=== PATIENT | female | born 1970 | race Caucasian/White ===

== ENCOUNTER 2021-01-06 13:21 | Emergency (ER) | payer MEDICAID ==
[~2021-01-06] VITALS: Ht 167.6 cm; Wt 92.6 kg
[2021-01-06 14:58] VITALS: BP 189/97
[2021-01-06] MEDS ORDERED: traMADol 50 MG TABLET PO ONE (15:30)
--- NOTE | 2021-01-06 15:35 | PHYS DOC ---
Past Medical History Additional Past Medical Histor: dental caries/infections Past Surgical History: Hysterectomy General Adult EDM: Chief Complaint: DENTAL PROBLEM HPI: HPI: Patient is a 50 year old female who presents with 1 week history of right-sided dental pain. Patient rates her pain 8/10 and throbbing in nature, with radiation to her right ear right lower jaw and right periorbital area. Patient states that she lost a filling last year and has had pain with infection 2 or 3 times since then. She has taken Tylenol and ibuprofen at home, but the pain is becoming intolerable. She reports her last dose was 2 tablets of Tylenol just prior to arrival. She reports associated chills, insomnia and subjective fever. She has had nausea and vomiting for the past 2 days, however she is able to keep fluids down. Patient denies chest pain, palpitations, new onset cough, shortness of breath. She has an additional complaint of a mole that is peeling and itchy. She denies any bleeding, discharge or surrounding warmth and erythema. Patient has no other complaints at this time. Review of Systems: Review of Systems: ROS negative except as mentioned in HPI. Heart Score: C/O Chest Pain: No Current Medications: Current Medications Medications (Trade) Dose Ordered Sig/Barb Start Time Stop Time Status Last Admin Dose Admin Tramadol HCl (Ultram) 50 mg 1X ONCE 01/06/21 15:30 01/06/21 15:31 UNV Allergies: Allergies: Allergies Coded Allergies Type Severity Reaction Last Updated Verified No Known Drug Allergies 01/06/21 No Physical Exam: PE: Constitutional: Well developed, well nourished, appears to be in pain however non-toxic appearance. HENT: Normocephalic, atraumatic, bilateral external ears normal, oropharynx moist, right upper molars with cavities and infection without obvious abscess, right mandibular and maxillary areas without external fluctuance, no periorbital abscess, nose normal. Eyes: PERRLA, EOMI, conjunctiva normal, no discharge. Neck: Normal range of motion, no tenderness, supple, no stridor. Cardiovascular: Heart rate regular rhythm, no murmur. Lungs & Thorax: Bilateral breath sounds clear to auscultation. Abdomen: Bowel sounds normal, soft, no tenderness, no masses, no pulsatile masses. Skin: Warm, dry, no erythema, no rash. 5 mm raised mole noted to left lateral thoracic back, dark brown without variation in color, symmetrical, well- circumscribed without erythema or any discharge. Back: No step-offs, no tenderness. Current Patient Data: Labs: Laboratory Tests Test 01/06/21 16:21 White Blood Count 10.5 x10^3/uL (4.0-11.0) Red Blood Count 5.55 x10^6/uL (3.50-5.40) Hemoglobin 16.5 g/dL (12.0-15.5) Hematocrit 48.1 % (36.0-47.0) Mean Corpuscular Volume 87 fL (79-100) Mean Corpuscular Hemoglobin 30 pg (25-35) Mean Corpuscular Hemoglobin Concent 34 g/dL (31-37) Red Cell Distribution Width 13.4 % (11.5-14.5) Platelet Count 413 x10^3/uL (140-400) Neutrophils (%) (Auto) 78 % (31-73) Lymphocytes (%) (Auto) 16 % (24-48) Monocytes (%) (Auto) 5 % (0-9) Eosinophils (%) (Auto) 0 % (0-3) Basophils (%) (Auto) 1 % (0-3) Neutrophils # (Auto) 8.2 x10^3/uL (1.8-7.7) Lymphocytes # (Auto) 1.7 x10^3/uL (1.0-4.8) Monocytes # (Auto) 0.5 x10^3/uL (0.0-1.1) Eosinophils # (Auto) 0.0 x10^3/uL (0.0-0.7) Basophils # (Auto) 0.1 x10^3/uL (0.0-0.2) Sodium Level 137 mmol/L (136-145) Potassium Level 4.3 mmol/L (3.5-5.1) Chloride Level 100 mmol/L (98-107) Carbon Dioxide Level 30 mmol/L (21-32) Anion Gap 7 (6-14) Blood Urea Nitrogen 14 mg/dL (7-20) Creatinine 0.8 mg/dL (0.6-1.0) Estimated GFR (Cockcroft-Gault) 75.6 BUN/Creatinine Ratio 18 (6-20) Glucose Level 109 mg/dL (70-99) Calcium Level 9.1 mg/dL (8.5-10.1) Total Bilirubin 0.4 mg/dL (0.2-1.0) Aspartate Amino Transf (AST/SGOT) 12 U/L (15-37) Alanine Aminotransferase (ALT/SGPT) 36 U/L (14-59) Alkaline Phosphatase 132 U/L (46-116) Total Protein 8.4 g/dL (6.4-8.2) Albumin 3.6 g/dL (3.4-5.0) Albumin/Globulin Ratio 0.8 (1.0-1.7) Vital Signs: Vital Signs Date Time Temp Pulse Resp B/P (MAP) Pulse Ox O2 Delivery O2 Flow Rate FiO2 01/06/21 16:18 16 96 Room Air 01/06/21 14:58 98.3 100 20 189/97 (127) 98 Room Air 98.3 Requested repeat bp, was unrecorded. Course & Med Decision Making: Course & Med Decision Making Pertinent Labs and Imaging studies reviewed. (See chart for details) No obvious abscess. With history of continued emesis, CBC and CMP drawn to evaluate white count as well as electrolyte abnormalities. Patient will be provided tramadol in the department. Discussed dental definitive treatment with the patient, who understands limited dental services in the emergency department. She will be discharged home with antibiotics. Patient will be provided with a list of clinics that she may contact for definitive treatment. Additionally, she continues to have an elevated blood pressure reading here in the department. She was also provided with a list of clinics for primary care for further evaluation. Patient understands and is agreeable to discharge plan. Hoa Disclaimer: Hoa Disclaimer: This electronic medical record was generated, in whole or in part, using a voice recognition dictation system. Departure Departure Impression: Primary Impression: Infected dental caries Additional Impression: Elevated blood pressure reading Disposition: HOME / SELF CARE / HOMELESS Condition: STABLE Patient Instructions: Dental Pain, [id number] Additional Instructions: As discussed, dental interventions are limited in the emergency department. You are provided with a list of clinics that you may contact for definitive management. Please take your full course of antibiotics unless otherwise instructed by a dentist. Your blood pressure was elevated here in the emergency department. You were provided with a list of clinics to obtain primary care. They can provide you with further evaluation and management. Please return to the emergency department if your symptoms worsen or if you develop chest pain, lightheadedness, palpitations or any other new symptoms. Scripts Tramadol Hcl (TRAMADOL HCL) 50 Mg Tablet 50 MG PO Q6HRS PRN for PAIN for 5 Days, #20 TAB Prov: ELINA DAVIS 01/06/21 Amoxicillin/Potassium Clav (AUGMENTIN 875-125 TABLET) 1 Each Tablet 1 TAB PO BID for 10 Days, #20 TAB 0 Refills Prov: ELINA DAVIS 01/06/21 ELINA DAVIS Jan 06, 2021 15:34
[2021-01-06 16:30] LABS: BASO # 0.1 x10^3/uL (0.0-0.2); BASO % 1 % (0-3); EOS % 0 % (0-3); HEMATOCRIT 48.1 % (36.0-47.0); HEMOGLOBIN 16.5 g/dL (12.0-15.5); LYMPH # 1.7 x10^3/uL (1.0-4.8); LYMPH % 16 % (24-48); MEAN CORPUSCULAR HEMOGLOBIN 30 pg (25-35); MEAN CORPUSCULAR HGB CONC 34 g/dL (31-37); MEAN CORPUSCULAR VOLUME 87 fL (79-100); MONO # 0.5 x10^3/uL (0.0-1.1); MONO % 5 % (0-9); NEUT # 8.2 x10^3/uL (1.8-7.7); NEUT % 78 % (31-73); PLATELET COUNT 413 x10^3/uL (140-400); RED BLOOD COUNT 5.55 x10^6/uL (3.50-5.40); RED CELL DISTRIBUTION WIDTH 13.4 % (11.5-14.5); WHITE BLOOD COUNT 10.5 x10^3/uL (4.0-11.0)
[2021-01-06] MEDS ORDERED: AMOX1TAB61 PO (16:36)
[2021-01-06] MEDS ORDERED: TRAM50TA PO (16:36)
[2021-01-06 16:40] LABS: CALCIUM 9.1 mg/dL (8.5-10.1); CREATININE 0.8 mg/dL (0.6-1.0); GFR 75.6; POTASSIUM 4.3 mmol/L (3.5-5.1)
[2021-01-06 16:46] LABS: ALBUMIN 3.6 g/dL (3.4-5.0); ALBUMIN/GLOBULIN RATIO 0.8 (1.0-1.7); TOTAL BILIRUBIN 0.4 mg/dL (0.2-1.0); TOTAL PROTEIN 8.4 g/dL (6.4-8.2)
== END 2021-01-06 17:20 | disposition home or self-care (01) ==
LOC: ER 13:21
DX: K04.7 Periapical abscess without sinus (principal); R03.0 Elevated blood-pressure reading, without diagnosis of hypertension
CPT/HCPCS: 36415; 80053; 85025; 99283